=== PATIENT | female | born 1940 | race Caucasian/White ===

== ENCOUNTER 2020-08-31 23:18 | Observation (INO) | payer MEDICARE, OTHER ==
[~2020-08-31] VITALS: Ht 162.6 cm; Wt 44.0 kg
[2020-09-01] MEDS ORDERED: KLONOPIN TAB 00.5 MG PO (04:21)
[2020-09-01] MEDS ORDERED: DILTIAZEM ER360 MG PO (04:21)
[2020-09-01] MEDS ORDERED: PIOGLITAZONE HC30 MG PO (04:22)
[2020-09-01] MEDS ORDERED: HYDROCHLOROTH12.5 MG PO (04:22)
[2020-09-01] MEDS ORDERED: MIRTAZAPINE15 MG PO (04:22)
[2020-09-01] MEDS ORDERED: OMEPRAZOLE40 MG PO (04:23)
[2020-09-01] MEDS ORDERED: TAMOXIFEN CITRA20 MG PO (04:23)
[2020-09-01] MEDS ORDERED: POTASSIUM CHLO20 ME2 PO (04:23)
[2020-09-01] MEDS ORDERED: GABAPENTIN100 MG PO (04:24)
[2020-09-01] MEDS ORDERED: IFEREX PO (04:26)
[2020-09-01 09:21] LABS: BUN/CREATININE RATIO 12 (0-10)
[2020-09-01 09:22] LABS: HEMOGLOBIN 11.2 gm/dl (12.3-15.3); RED BLOOD COUNT 3.66 M/UL (4.00-5.10); WHITE BLOOD COUNT 8.5 K/UL (4.5-11.0)
[2020-09-01] MEDS ORDERED: GLUCOPHAGE 500500 MG PO (11:12)
[2020-09-01] MEDS ORDERED: ZOFRAN4 MG PO (11:12)
[2020-09-02 03:37] LABS: HEMOGLOBIN 10.2 gm/dl (12.3-15.3); RED BLOOD COUNT 3.35 M/UL (4.00-5.10); WHITE BLOOD COUNT 7.8 K/UL (4.5-11.0)
[2020-09-02 04:06] LABS: BUN/CREATININE RATIO 15 (0-10)
[2020-09-05 13:40] LABS: BUN/CREATININE RATIO 26 (0-10)
[2020-09-05] MEDS ORDERED: NITROFURANTOIN100 MG PO (14:46)
== END 2020-09-05 21:21 ==
LOC: M/S 09-01 04:10
PROVIDERS: Internal Medicine; Internal Medicine Infectious Disease; Physician Assistant; ADMIT Internal Medicine
DX: S32.592A Other specified fracture of left pubis, initial encounter for closed fracture (principal); S32.10XA Unspecified fracture of sacrum, initial encounter for closed fracture; E11.9 Type 2 diabetes mellitus without complications; I10 Essential (primary) hypertension; F41.9 Anxiety disorder, unspecified; D64.9 Anemia, unspecified; M81.0 Age-related osteoporosis without current pathological fracture; F03.90 Unspecified dementia, unspecified severity, without behavioral disturbance, psychotic disturbance, mood disturbance, and anxiety; K21.9 Gastro-esophageal reflux disease without esophagitis; Z85.3 Personal history of malignant neoplasm of breast; Z79.899 Other long term (current) drug therapy; W19.XXXA Unspecified fall, initial encounter
CPT/HCPCS: 36415; 80048; 80053; 81001; 82607; 82962; 83036; 83735; 84443; 85025; 87077; 87086; 87186; 96372; 96374; 97110-GP-CQ; 97116-GP-CQ; 97161; 97530; 97530-GP-CQ; G0378; G0379; J1650; J2405; J7030; J7040